=== PATIENT | female | born 1935 | race Caucasian/White ===

== ENCOUNTER 2018-03-13 11:12 | Emergency (ER) | payer MEDICARE, MEDICAID ==
[~2018-03-13] VITALS: Ht 154.9 cm; Wt 68.0 kg
[2018-03-13] MEDS ORDERED: Bupivacaine 0.25% Inj 30ml INJ ONE (11:45)
[2018-03-13] MEDS ORDERED: Acetaminophen 500mg (ES) tab ORAL ONE (11:45)
[2018-03-13 12:07] VITALS: BP 159/78
--- NOTE | 2018-03-13 12:52 | Diagnostic Imaging Report ---
Indication: Trauma to the right fifth finger Technique: 3 views right hand Comparison: none Findings: No acute fractures. No dislocations. Bones are osteoporotic. 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 There is mild degenerative arthrosis of the third fourth and fifth proximal interphalangeal joints. There is also degenerative change of the first carpometacarpal joint and lateral intercarpal joint. 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
--- NOTE | 2018-03-13 13:17 | Emergency Room Report ---
History of Present Illness General Chief Complaint: Laceration Source: Patient Present Illness HPI Patient closed R little finger in door. + smashed and split open. Pain rated at 10/10, throbbing and sharp. Denies numbness. She does not think there is a fracture. Bleeding was controlled at home. No blood thinners. No fevers. Anxious. R handed Allergies: Coded Allergies: DIPHENHYDRAMINE (Verified Allergy, Unknown, 03/13/18) LIDOCAINE (Verified Allergy, Unknown, 03/13/18) Patient History Past Medical History: see triage record Social History: Denies: smoking, alcohol use Social History Narrative retired Reviewed Nursing Documentation: PMH: Agreed; PSxH: Agreed Review of Systems Constitutional: Denies: fever Cardiovascular: Denies: chest pain Musculoskeletal: Reports: see HPI Skin: Reports: see HPI Neurological: Reports: see HPI Hematologic/Lymphatic: Reports: see HPI Physical Exam Vital Signs Date Time Temp Pulse Resp B/P (MAP) Pulse Ox O2 Delivery O2 Flow Rate FiO2 03/13/18 11:18 98.3 96 18 159/78 94 Room Air 98.2 Sp02 EP Interpretation: reviewed, normal General Appearance: well appearing, no apparent distress Head: normocephalic, atraumatic Eyes: bilateral eye normal inspection, bilateral eye PERRL ENT: hearing grossly normal, normal voice, moist mucus membranes Neck: full range of motion, supple Respiratory: no respiratory distress, speaking full sentences Gastrointestinal: normal inspection Musculoskeletal: gait/station normal, normal range of motion - tendons intact R little finger, swelling - R little finger Neurologic: alert, motor strength/tone normal, sensory intact, normal gait Psychiatric: mood/affect normal Skin: hematoma, laceration Procedures Laceration/Wound Repair Laceration/Wound Repair : Consent: Verbal Wound Location: upper extremity - R little finger Wound's Depth, Shape: linear, flap, contused tissue Wound Length (cm): 3 Wound Explored: clean Betadine Prep?: Yes Anesthesia: other - .25% bupivicaine Wound Debrided: moderate Wound Repaired With: sutures Suture Size/Type: 5:0, nylon Patient Tolerated: Well Complications: None Medical Decision Making Diagnostic Impression: Primary Impression: Crush injury to finger Qualified Codes: S67.10XA - Crushing injury of unspecified finger(s), initial encounter Additional Impression: Finger laceration Qualified Codes: S61.216A - Laceration without foreign body of right little finger without damage to nail, initial encounter ER Course Patient with crush injury of R little finger. Needs x-ray to determine if open fracture and sutures. Patient will be given tylenol. Allergy to lidocaine - therefore bupivicaine will be used. Xray without fx. Sutured. Tolerated well. Patient stable for outpatient observation and treatment. Other X-Ray Diagnostic Results Other X-Ray Diagnostic Results : X-Ray ordered: R hand # of Views/Limited Vs Complete: 3 View Indication: Other EP Interpretation: Yes Interpretation: no dislocation, no soft tissue swelling, no fractures, other - DJD and osteoarthritis Impression: Other Electronically Signed by: Jimmy Agudelo MD Last Vital Signs Date Time Temp Pulse Resp B/P (MAP) Pulse Ox O2 Delivery O2 Flow Rate FiO2 03/13/18 16:03 98.3 69 18 159/78 94 Room Air 98.3 Status: improved Disposition: HOME, SELF-CARE Condition: Improved Scripts Bacitracin (Bacitracin) 28.4 Gm Oint...g. 1 APPLIC TOPIC BID, #20 GM Prov: Jimmy Agudelo M.D. 03/13/18 Jimmy Agudelo M.D. Mar 13, 2018 13:17
[2018-03-13] MEDS ORDERED: BACITRACIN15 GM TOPIC (13:20)
[2018-03-13 16:03] VITALS: BP 159/78
== END 2018-03-13 14:00 | disposition home or self-care (01) ==
LOC: EMR 11:20
DX: S67.196A Crushing injury of right little finger, initial encounter (principal); S61.216A Laceration without foreign body of right little finger without damage to nail, initial encounter; W23.0XXA Caught, crushed, jammed, or pinched between moving objects, initial encounter; Y92.9 Unspecified place or not applicable
CPT/HCPCS: 12002; 73130; 99283; J3490

== ENCOUNTER 2018-03-21 08:18 | Emergency (ER) | payer MEDICARE, MEDICAID ==
[~2018-03-21] VITALS: Ht 152.4 cm; Wt 63.5 kg
[~2018-03-21 08:18] MED LIST: BACITRACIN15 GM TOPIC
--- NOTE | 2018-03-21 08:26 | Emergency Room Report ---
History of Present Illness General Chief Complaint: To Be Triaged Source: Patient Present Illness HPI The patient sustained a crush injury of her right little finger on March 13. X- rays were negative. She had laceration repair. She states that yesterday there was increased pain and also slight yellow drainage. She is here for reevaluation and possible suture removal. No fever. No redness. No NVD. No numbness. Allergies: Coded Allergies: DIPHENHYDRAMINE (Verified Allergy, Unknown, 03/13/18) LIDOCAINE (Verified Allergy, Unknown, 03/13/18) Patient History Past Medical History: see triage record Social History: Denies: smoking, alcohol use, drug use Social History Narrative at home by herself Reviewed Nursing Documentation: PMH: Agreed; PSxH: Agreed Review of Systems Constitutional: Reports: see HPI Musculoskeletal: Reports: see HPI Skin: Reports: see HPI Physical Exam Vital Signs Date Time Temp Pulse Resp B/P (MAP) Pulse Ox O2 Delivery O2 Flow Rate FiO2 03/21/18 08:22 96.9 68 16 134/75 94 Room Air 97.0 Sp02 EP Interpretation: reviewed, abnormal - interpreted as slightly low by me Head: normocephalic, atraumatic Eyes: bilateral eye normal inspection, bilateral eye PERRL ENT: moist mucus membranes Neck: full range of motion Respiratory: no respiratory distress Gastrointestinal: normal inspection Musculoskeletal: other - ROM good of little finger Neurologic: motor strength/tone normal, sensory intact Psychiatric: mood/affect normal Skin: wd healing/no infection noted - - some tenderness mid laceration. No pus or erythema Medical Decision Making Diagnostic Impression: Primary Impression: Visit for suture removal Additional Impression: Possible wound infection ER Course Patient post sutures 03/13. States drainage yesterday and slight increase in pain. The wound is well approximated and there is no drainage or erythema. However, due to hx, will start antibiotics. Sutures removed. Tolerated well. Discussed need to return if worsening and need for antibiotics. Patient stable for outpatient observation and treatment. Last Vital Signs Date Time Temp Pulse Resp B/P (MAP) Pulse Ox O2 Delivery O2 Flow Rate FiO2 03/21/18 08:55 96.9 16 134/75 94 Room Air 97.0 03/21/18 08:22 68 Status: improved Disposition: HOME, SELF-CARE Condition: Improved Scripts Cephalexin* (KEFLEX*) 500 Mg Capsule 500 MG ORAL EVERY 6 HOURS, #20 CAP Prov: Jimmy Agudelo M.D. 03/21/18 Jimmy Agudelo M.D. Mar 21, 2018 08:26
[2018-03-21] MEDS ORDERED: CEPHALEXIN500 MG ORAL (08:40)
[2018-03-21] MEDS ORDERED: Cephalexin 500mg cap ONE (08:41)
[2018-03-21] MEDS ORDERED: Cephalexin 500mg cap ORAL ONE (08:45)
[2018-03-21 08:55] VITALS: BP 134/75
== END 2018-03-21 08:57 | disposition home or self-care (01) ==
LOC: EMR 08:36
DX: S61.011D Laceration without foreign body of right thumb without damage to nail, subsequent encounter (principal); X58.XXXD Exposure to other specified factors, subsequent encounter; Z48.02 Encounter for removal of sutures
CPT/HCPCS: 99283